=== PATIENT | female | born 1960 | race African-American/Black ===

== ENCOUNTER 2017-04-27 19:08 | Emergency (ER) | payer MEDICARE, OTHER ==
[~2017-04-27] VITALS: Ht 167.6 cm; Wt 93.9 kg
[~2017-04-27 19:08] MED LIST: AMLO-147 PO; ASPI-676 PO; ATOR40TA68 PO; BENAZEPRIL PO; BENZ1TAB7 PO; FISH1200 PO; FOLI-49 PO; GLIP5TAB13; HALDOL PO; IBUP-1542 PO; LORA-52 PO; METF500T4 PO; VITAMIN B
[2017-04-27 19:30] VITALS: Ht 167.6 cm; Wt 93.9 kg
--- NOTE | 2017-04-27 22:21 | ERD ---
ER Documentation Chief Complaint Chief Complaint abd pain x 2 days HPI The patient is a 56-year-old female, presenting to the ER because of intermittent, vague, abdominal pain for the last 2 days, associated with diarrhea. She denies any abdominal pain now, she saw her physician a week ago for similar symptoms. She denies fever, chills, neck pain, chest pain, dyspnea , denies hematemesis, hematochezia, dysuria. She does not smoke, drinks socially Past medical history: Hypertension, diabetes mellitus, history of CVA, dyslipidemia, schizophrenia Past surgical history: 3 , hysterectomy, left breast ROS All systems reviewed and are negative except as per history of present illness. Medications Home Meds Active Scripts Ondansetron (Ondansetron Odt) 4 Mg Tab.rapdis, 4 MG PO Q6H Y for NAUSEA AND/OR VOMITING, #10 TAB Prov:ARISTIDES CARLIN MD 04/28/17 Ibuprofen* (Motrin*) 600 Mg Tab, 600 MG PO Q6, #30 TAB Prov:ARISTIDES CARLIN MD 04/28/17 Reported Medications Gabapentin* (Gabapentin*) 600 Mg Tablet, 600 MG PO BID, #60 TAB 04/27/17 Pravastatin Sodium* (Pravastatin Sodium*) 40 Mg Tablet, 40 MG PO HS, TAB 04/27/17 Ibuprofen* (Ibuprofen*) 400 Mg Tablet, 400 MG PO Q8H Y for PAIN, TAB 04/27/17 Insulin Human Regular (Novolin-R U-100) 100 Unit/Ml Soln, 20 UNITS SC AC BREAKFAST DINNER, EA 04/27/17 Insulin Glargine* (Lantus*) 100 Unit/Ml Soln, 20 UNIT SC QHS, #1 VIAL 04/27/17 Metformin Hcl* (Metformin Hcl*) 850 Mg Tablet, 850 MG PO AC MEALS AND BEDTIME, # 60 TAB 04/27/17 Benazepril Hcl* (Benazepril Hcl*) 40 Mg Tablet, 40 MG PO DAILY, #30 TAB 04/27/17 Sertraline Hcl* (Sertraline Hcl*) 100 Mg Tablet, 100 MG PO DAILY, #30 TAB 04/27/17 Benztropine Mesylate* (Cogentin*) 1 Mg Tab, 1 MG PO HS 10/24/12 Loratadine (Alavert) 10 Mg Tablet, PO DAILY 10/24/12 Amlodipine Besylate* (Amlodipine Besylate*) 10 Mg Tablet, PO DAILY 10/24/12 Aspirin (Jud Child) 81 Mg Chew, 81 MG PO DAILY 07/29/10 Discontinued Reported Medications [Benazepril] TABLET No Conflict Check, 10 MG PO DAILY 10/24/12 Benztropine Mesylate* (Cogentin*) 1 Mg Tab, 1 MG PO Q AM 10/24/12 [Haldol] No Conflict Check, 10 MG PO HS 10/24/12 [Haldol] TAB No Conflict Check, 2.5 MG PO Q AM 10/24/12 Atorvastatin* (Atorvastatin*) 40 Mg Tablet, PO DAILY 10/24/12 [Vitamin B] No Conflict Check 10/24/12 Folic Acid* (Folic Acid*) 1 Mg Tablet, 1 MG PO AM 10/24/12 Fish Oil/Fat No.8/Hrb Comb.137 ([place] 3-6-9 1,200 Mg Softgel) 1,200 Mg Capsule, 300 MG PO BID, 0 Refills 07/29/10 Glipizide* (Glipizide*) 5 Mg Tablet 07/29/10 Ibuprofen* (Ibuprofen*) 600 Mg Tablet, 400 MG PO Q8H PRN, 0 Refills 07/29/10 Metformin* (Glucophage*) 500 Mg Tab, 1000 MG PO BID, 0 Refills 07/29/10 Allergies Allergies: Coded Allergies: sulfur (Verified Allergy, Mild, RASH, 04/27/17) Uncoded Allergies: sulfa (Allergy, Unknown, swelling, 04/27/17) vaginal cream PMhx/Soc History of Surgery: No Anesthesia Reaction: Yes (vomiting) Hx Neurological Disorder: Yes (CVA '78) Hx Respiratory Disorders: No Hx Cardiac Disorders: Yes (HTN, hyperlipedemia, heart mumur, DM) Hx Psychiatric Problems: Yes (Schitzophrenia) Hx Alcohol Use: Yes (wine, 1 glass with dinner) Hx Substance Use: No Hx Tobacco Use: No Physical Exam Vitals Vital Signs Date Time Temp Pulse Resp B/P Pulse Ox O2 Delivery O2 Flow Rate FiO2 04/28/17 01:29 96 18 158/85 96 Room Air 04/27/17 22:50 98.3 95 19 148/74 98 Room Air 04/27/17 19:30 98.3 120 20 173/81 98 Physical Exam Const: No acute distress. Head: Atraumatic. Eyes: Normal Conjunctiva. ENT: Normal External Ears, Nose and Mouth. Neck: Full range of motion. No meningismus. Resp: Clear to auscultation bilaterally. Cardio: Regular rate and rhythm. Abd: Soft, non distended, normal bowel sounds, non tender. Skin: No petechiae or rashes. Back: No midline or flank tenderness. Ext: No cyanosis, or edema. Neur: Awake and alert. No focal deficit Psych: Normal Mood and Affect. Result Diagram: 04/27/17224904/27/172249 Results 24 hrs Laboratory Tests Test 04/27/17 19:34 04/27/17 22:37 04/27/17 22:40 04/27/17 22:50 Bedside Glucose 152mg/dL 161mg/dL Urine Opiates Screen Negative Urine Barbiturates Negative Urine Amphetamines Screen Negative Urine Benzodiazepines Screen Negative Urine Cocaine Screen Negative Urine Cannabinoids Negative White Blood Count 7.210^3/ul Red Blood Count 3.9310^6/ul Hemoglobin 12.8g/dl Hematocrit 37.6% Mean Corpuscular Volume 95.7fl Mean Corpuscular Hemoglobin 32.6pg Mean Corpuscular Hemoglobin Concent 34.0g/dl Red Cell Distribution Width 13.2% Platelet Count 39808^3/UL Mean Platelet Volume 13.6fl Neutrophils % 61.4% Lymphocytes % 30.4% Monocytes % 5.9% Eosinophils % 1.4% Basophils % 0.6% Nucleated Red Blood Cells % 0.0/100WBC Neutrophils # 4.410^3/ul Lymphocytes # 2.210^3/ul Monocytes # 0.410^3/ul Eosinophils # 0.110^3/ul Basophils # 0.010^3/ul Nucleated Red Blood Cells # 0.010^3/ul Sodium Level 141mmol/L Potassium Level 4.1mmol/L Chloride Level 102mmol/L Carbon Dioxide Level 27mmol/L Anion Gap 16 Blood Urea Nitrogen 13mg/dl Creatinine 0.69mg/dl Glucose Level 147mg/dl Calcium Level 10.2mg/dl Total Bilirubin 0.2mg/dl Direct Bilirubin 0.00mg/dl Indirect Bilirubin 0.2mg/dl Aspartate Amino Transf (AST/SGOT) 68IU/L Alanine Aminotransferase (ALT/SGPT) 85IU/L Alkaline Phosphatase 112IU/L Total Protein 7.7g/dl Albumin 4.5g/dl Globulin 3.20g/dl Albumin/Globulin Ratio 1.40 Lipase 85U/L Ethyl Alcohol Level < 10.0mg/dl Test 04/27/17 22:56 Bedside Urine pH (LAB) 5.5 Bedside Urine Protein (LAB) Negative Bedside Urine Glucose (UA) Negative Bedside Urine Ketones (LAB) Negative Bedside Urine Blood Negative Bedside Urine Nitrite (LAB) Negative Bedside Urine Leukocyte Esterase (L Negative Procedures/MDM EKG: Read by emergency physician Rate/Rhythm: Normal Sinus Rhythm 93 beats/min QRS, ST, T-waves: No ST elevation, no T inversion, left atrial enlargement Impression: Abnormal EKG MEDICAL MAKING DECISION: The patient is a 56 -year-old female, presenting to the ER because of intermittent abdominal pain of unclear etiology. She is stable for outpatient follow-up The differential diagnoses considered include but are not limited to cholelithiasis, cholecystitis, cystitis, pancreatitis, hepatitis, gastritis, peptic ulcer disease, gastric ulcer, appendicitis, diverticulitis, cholangitis, choledocholithiasis, partial small bowel obstruction. Departure Diagnosis: Primary Impression: Abdominal pain Additional Impressions: Transaminitis Thrombocytopenia Condition: Good Comments She was discharged with Motrin and Imodium I discussed the findings with the patient. I advised the patient to follow-up with the primary physician in about 1-2 days, sooner if needed and return if any concern. Disclaimer: Inadvertent spelling and grammatical errors are likely due to EHR/ dictation software use and do not reflect on the overall quality of patient care. Also, please note that the electronic time recorded on this note does not necessarily reflect the actual time of the patient encounter. ARISTIDES CARLIN MD Apr 27, 2017 22:21
[2017-04-27 22:50] VITALS: TEMP 98.3
[2017-04-27 22:57] LABS: URINE BLOOD (Dip) POC Negative (NEGATIVE)
[2017-04-27 23:16] LABS: ABNORMAL IP MESSAGE 1; BASOPHILS % 0.6 % (0.0-2.0); EOSINOPHILS # 0.1 10^3/ul (0.0-0.5); EOSINOPHILS % 1.4 % (0.0-7.0); HEMATOCRIT 37.6 % (37.0-47.0); HEMOGLOBIN 12.8 g/dl (12.0-16.0); LYMPHOCYTES # 2.2 10^3/ul (0.8-2.9); LYMPHOCYTES % 30.4 % (15.0-51.0); MEAN CORPUSCULAR HEMOGLOBIN 32.6 pg (29.0-33.0); MEAN CORPUSCULAR VOLUME 95.7 fl (82.0-101.0); MEAN PLATELET VOLUME 13.6 fl (7.4-10.4); MONOCYTE # 0.4 10^3/ul (0.3-0.9); MONOCYTES % 5.9 % (0.0-11.0); NEUTROPHIL # 4.4 10^3/ul (1.6-7.5); NEUTROPHILS % 61.4 % (39.0-77.0); PLATELET COUNT 131 10^3/UL (140-415); RED BLOOD COUNT 3.93 10^6/ul (4.20-5.40); RED CELL DISTRIBUTION WIDTH 13.2 % (11.5-14.5); WHITE BLOOD COUNT 7.2 10^3/ul (4.8-10.8)
[2017-04-27 23:19] LABS: POSITIVE DIFF @See below
[2017-04-27 23:34] LABS: BENZODIAZEPINES Negative (NEGATIVE)
[2017-04-27 23:34] LABS: ALANINE AMINOTRANSFERASE 85 IU/L (13-69); ALBUMIN 4.5 g/dl (3.3-4.9); ALKALINE PHOSPHATASE 112 IU/L (42-121); ANION GAP 16 (8-16); ASPARTATE AMINO TRANSFERASE 68 IU/L (15-46); BILIRUBIN,INDIRECT 0.2 mg/dl (0-1.1); BILIRUBIN,TOTAL 0.2 mg/dl (0.2-1.3); BLOOD UREA NITROGEN 13 mg/dl (7-20); CALCIUM 10.2 mg/dl (8.4-10.2); CARBON DIOXIDE 27 mmol/L (21-31); CHLORIDE 102 mmol/L (97-110); CREATININE 0.69 mg/dl (0.44-1.00); GLUCOSE 147 mg/dl (70-220); POTASSIUM 4.1 mmol/L (3.5-5.1); SODIUM 141 mmol/L (135-144); TOTAL PROTEIN 7.7 g/dl (6.1-8.1)
[2017-04-27] MEDS ORDERED: SERT-165 PO (23:34)
[2017-04-27] MEDS ORDERED: METF850T PO (23:35)
[2017-04-27] MEDS ORDERED: BENA40TA41 PO (23:35)
[2017-04-27] MEDS ORDERED: LANT3I SC (23:36)
[2017-04-27 23:37] LABS: BARBITURATES Negative (NEGATIVE); CANNABINOIDS Negative (NEGATIVE); COCAINE Negative (NEGATIVE); OPIATES Negative (NEGATIVE)
[2017-04-27] MEDS ORDERED: SS SC (23:37)
[2017-04-27] MEDS ORDERED: IBUP400T22 PO (23:37)
[2017-04-27] MEDS ORDERED: PRAV40TA76 PO (23:38)
[2017-04-27] MEDS ORDERED: GABA-526 PO (23:38)
[2017-04-27 23:48] LABS: ETHANOL < 10.0 mg/dl
[2017-04-28] MEDS ORDERED: IBUP-1542 PO (01:04)
[2017-04-28] MEDS ORDERED: ONDA4TAB14 PO (01:04)
[2017-04-28 01:29] VITALS: BP 158/85; PULSE 96; RESP 18
== END 2017-04-28 01:29 | disposition home or self-care (01) ==
LOC: E/R 19:08
DX: D69.6 Thrombocytopenia, unspecified (principal); R74.0 Nonspecific elevation of levels of transaminase and lactic acid dehydrogenase [LDH]; I10 Essential (primary) hypertension; E11.9 Type 2 diabetes mellitus without complications; Z79.4 Long term (current) use of insulin; Z79.84 Long term (current) use of oral hypoglycemic drugs; Z79.82 Long term (current) use of aspirin
CPT/HCPCS: 36415; 80053; 80306; 80307; 81003; 82962; 83690; 85025; 93005

== ENCOUNTER 2018-04-19 13:25 | Emergency (ER) | END 2018-04-19 15:20 | disposition home or self-care (01) ==

== ENCOUNTER 2018-11-29 22:24 | Emergency (ER) | payer MEDICARE, OTHER ==
[~2018-11-29] VITALS: Ht 154.9 cm; Wt 96.7 kg
[~2018-11-29 22:24] MED LIST changes: -ATOR40TA68 PO; +BENA40TA56 PO; -BENAZEPRIL PO; -FISH1200 PO; -FOLI-49 PO; +GABA-526 PO; -GLIP5TAB13; -HALDOL PO; +IBUP-1541 PO; +LANT3I SC; -METF500T4 PO; +METF850T13 PO; +ONDA4TAB14 PO; +PRAV40TA76 PO; +SERT-165 PO; +SS SC; -VITAMIN B
[2018-11-29 22:31] VITALS: BP 156/72; PULSE 112; RESP 18; Ht 154.9 cm; Wt 96.7 kg
== END 2018-11-30 00:48 | disposition left against medical advice (07) ==
LOC: FTE 22:24
DX: Z53.21 Procedure and treatment not carried out due to patient leaving prior to being seen by health care provider (principal)
CPT/HCPCS: 82962

== ENCOUNTER 2019-02-09 09:40 | Emergency (ER) | payer MEDICARE, OTHER ==
[~2019-02-09] VITALS: Wt 94.9 kg
[~2019-02-09 09:40] MED LIST changes: +ACET500C5 PO; +DICL100G37 TOP
[2019-02-09] MEDS ORDERED: ACETAMINOPHEN 500 MG TAB PO STA (10:47)
[2019-02-09 12:04] VITALS: BP 158/85; PULSE 84; RESP 18
== END 2019-02-09 12:05 | disposition home or self-care (01) ==
LOC: FTE 09:40
DX: M25.562 Pain in left knee (principal); I10 Essential (primary) hypertension; E11.9 Type 2 diabetes mellitus without complications; Z79.82 Long term (current) use of aspirin; Z79.4 Long term (current) use of insulin; Z86.73 Personal history of transient ischemic attack (TIA), and cerebral infarction without residual deficits
CPT/HCPCS: 73562